=== PATIENT | female | born 1980 | race Caucasian/White ===

== ENCOUNTER 2022-02-06 18:25 | Emergency (ER) | payer BC ==
[2022-02-06] MEDS ORDERED: Acetaminophen 325 MG Tab PO ONE (22:26)
[2022-02-06] MEDS ORDERED: Acyclovir 200 MG Cap PO ONE (22:26)
[2022-02-06] MEDS ORDERED: diphenhydrAMINE 25 MG Cap PO ONE (22:27)
== END 2022-02-06 22:49 | disposition home or self-care (01) ==
LOC: MW.ED 18:25
DX: B02.9 Zoster without complications (principal); E11.9 Type 2 diabetes mellitus without complications; Z79.899 Other long term (current) drug therapy; Z88.9 Allergy status to unspecified drugs, medicaments and biological substances
CPT/HCPCS: 99282; A9270

== ENCOUNTER 2022-02-19 08:29 | Emergency (ER) | payer BC, MEDICAID ==
[2022-02-19] MEDS ORDERED: Acetaminophen 325 MG Tab PO ONE (08:42)
[2022-02-19] MEDS ORDERED: Ibuprofen 400 MG Tab PO ONE (09:21)
[2022-02-19 09:31] LABS: CORONAVIRUS COVID-19 NAA NEGATIVE (NEGATIVE); INFLUENZA A NAA NEGATIVE (NEGATIVE); INFLUENZA B NAA NEGATIVE (NEGATIVE); RESPIRATORY SYNCYTIAL VIR NAA NEGATIVE (NEGATIVE)
== END 2022-02-19 10:34 | disposition home or self-care (01) ==
LOC: MW.ED 08:29
DX: J06.9 Acute upper respiratory infection, unspecified (principal); E11.9 Type 2 diabetes mellitus without complications; Z88.8 Allergy status to other drugs, medicaments and biological substances; Z20.822 Contact with and (suspected) exposure to COVID-19
CPT/HCPCS: 0241U; 99283; A9270

== ENCOUNTER 2022-06-05 18:58 | Emergency (ER) | payer MEDICAID ==
[2022-06-05] MEDS ORDERED: Ondansetron 4 MG Tab.DIS PO ONE (21:04)
[2022-06-05 22:18] LABS: CARBON DIOXIDE,CO2 26.9 mmol/L (21.0-32.0); POTASSIUM,K 3.5 mmol/L (3.5-5.1)
== END 2022-06-05 22:30 | disposition home or self-care (01) ==
LOC: MW.ED 18:58
DX: K52.9 Noninfective gastroenteritis and colitis, unspecified (principal); E11.9 Type 2 diabetes mellitus without complications; Z88.8 Allergy status to other drugs, medicaments and biological substances; Z79.84 Long term (current) use of oral hypoglycemic drugs; Z79.899 Other long term (current) drug therapy
CPT/HCPCS: 36415; 80053; 85027; 99284; A9270; 99283